=== PATIENT | male | born 1985 | race Two or more races ===

== ENCOUNTER 2016-10-10 16:35 | Emergency (ER) | payer BC, OTHER ==
[~2016-10-10] VITALS: Ht 188 cm; Wt 136.1 kg
[~2016-10-10 16:35] MED LIST: CEPH-570 PO; LORA10TA64 PO
[2016-10-10] MEDS ORDERED: PHEN1SUP RC (17:00)
[2016-10-10] MEDS ORDERED: PHEN28OI6 RC (17:00)
--- NOTE | 2016-10-10 17:30 | NUR ---
Patient discharged to home in stable conditon. Written and verbal after care instructions given. Patient verbalizes understanding of instructions.
== END 2016-10-10 17:31 | disposition home or self-care (01) ==
LOC: ER 16:44
DX: Z88.8 Allergy status to other drugs, medicaments and biological substances (principal); B95.8 Unspecified staphylococcus as the cause of diseases classified elsewhere; J45.909 Unspecified asthma, uncomplicated; K62.89 Other specified diseases of anus and rectum
CPT/HCPCS: A4663